=== PATIENT | female | born 1995 | race Caucasian/White ===

== ENCOUNTER 2018-10-16 18:58 | Emergency (ER) | payer OTHER, MEDICAID ==
[~2018-10-16] VITALS: Ht 165.1 cm; Wt 52.2 kg
[~2018-10-16 18:58] MED LIST: ACETAMINOPHEN-1 EAC1 PO; AMITRIPTYLINE H25 M2 PO; AZITHROMYCIN 2250 MG PO; BENADRYL25 MG PO; CIPRO500 MG PO; DOXYCYCLINE 10100 MG PO; FLAGYL500 MG PO; PEPCID20 MG PO; PHENERGAN 25 MG25 M1 PO; POTASSIUM20 PO; PRILOSEC 20 MG20 MG PO; PROMETHAZINE12.5 M4 RE; PROMS25 WY RECTAL; SUPRAX400 M1 PO; XANAX 0.25 MG0.25 MG PO; ZOFRAN ODT4 MG PO; ZPAK PO
[2018-10-16 19:57] LABS: ABSOLUTE EOSINOPHILS 0.2 thou/uL (0.0-0.7); ABSOLUTE LYMPHOCYTES 3.1 thou/uL (0.8-5.3); ABSOLUTE MONOCYTES 0.7 thou/uL (0.0-1.2); ABSOLUTE NEUTROPHILS 6.3 thou/uL (1.6-8.1); BASOPHILS 0.1 %; EOSINOPHILS 1.9 %; HEMATOCRIT 37.3 % (37.0-47.0); HEMOGLOBIN 12.3 gm/dL (12.0-15.0); LYMPHOCYTES 29.8 %; MCH 27.7 pg (26.0-34.0); MCHC 33.1 g/dL (28.0-37.0); MCV 83.8 fL (80.0-100.0); MONOCYTES 7.2 %; MPV 8.1 fl. (7.2-11.1); NUCLEATED RBCS 0 /100WBC; PLATELET COUNT* 263 thou/uL (150-400); RBC 4.45 mil/uL (4.20-5.00); WBC 10.4 thou/uL (4.0-11.0)
[2018-10-16 20:07] LABS: ANION GAP 13 mmol/L (7-16); BUN 6 mg/dL (7-18); CALCIUM 9.4 mg/dL (8.5-10.1); CHLORIDE 100 mmol/L (98-107); CO2 21 mmol/L (21-32); CREATININE 0.6 mg/dL (0.6-1.3); GLUCOSE 86 mg/dL (70-99); POTASSIUM 3.5 mmol/L (3.5-5.1); SODIUM 134 mmol/L (136-145)
[2018-10-16 20:12] LABS: APTT 30.6 Seconds (25.0-31.3); PROTIME 10.6 Seconds (9.20-11.50)
[2018-10-16 20:32] LABS: ALBUMIN 3.5 g/dL (3.4-5.0); ALKALINE PHOSPHATASE 62 U/L (46-116); CK-MB MASS 0.6 ng/mL (<0.5-3.6); LIPASE 117 U/L (73-393); MAGNESIUM 1.8 mg/dL (1.8-2.4); NT-PRO BRAIN NAT PEPTIDE 64 pg/mL (<300); SGOT 10 U/L (15-37); SGPT 12 U/L (30-65); TOTAL BILIRUBIN 0.3 mg/dL (<0.1-1.0); TOTAL PROTEIN 7.2 g/dL (6.4-8.2); TROPONIN-I LEVEL <0.06 ng/mL (<0.06)
[2018-10-16 20:40] VITALS: BP 106/56
--- NOTE | 2018-10-17 11:08 | EKG ---
[place] [address] ELECTROCARDIOGRAM REPORT Name: ELEN BUNCHBY Thomas Room: [facility]#: [id number] Admission: 10/16/18 Attend Phys: Discharge: 10/16/18 Date of : [birth year] Report #: [id number] THIS REPORT FOR: //name// [facility] ED Test Date: 2018-10-16 Test Time: 19:12:36 Pat Name: RUBY BUNCH Department: Room: Gender: F Test Examiner: : 1995 Requested By: Ovidio Lloyd Order Number: [id number] MD: Horacio Schmitz Measurements Intervals [place] Rate: 86 P: 16 CA: 183 QRS: 79 QRSD: 110 T: 48 QT: 373 QTc: 446 Interpretive Statements Sinus rhythm RSR' in V1 or V2, right VCD or RVH Compared to ECG 07/09/2014 13:59:45 no change Electronically Signed On 10-17-2018 11:07:53 LEHR LOADER by Horacio Schmitz [email or web address] <ELECTRONICALLY SIGNED> By: Horacio Schmitz MD, [facility] 10/17/18 110 11 11 Horacio Schmitz MD, FACC /EPI
== END 2018-10-16 20:40 | disposition home or self-care (01) ==
LOC: M.ERS 18:58
PROVIDERS: Family Medicine
DX: O26.892 Other specified pregnancy related conditions, second trimester (principal); R07.89 Other chest pain; F17.210 Nicotine dependence, cigarettes, uncomplicated; Z88.6 Allergy status to analgesic agent; Z87.442 Personal history of urinary calculi; Z3A.00 Weeks of gestation of pregnancy not specified

== ENCOUNTER 2019-09-30 00:51 | Emergency (ER) | payer OTHER, MEDICAID ==
[~2019-09-30] VITALS: Ht 165.1 cm; Wt 54.0 kg
[2019-09-30] MEDS ORDERED: TYLENOL WITH CO1 TA1 PO (01:59)
[2019-09-30 02:05] VITALS: BP 108/54
== END 2019-09-30 02:05 | disposition home or self-care (01) ==
LOC: M.ERS 00:51
DX: S80.01XA Contusion of right knee, initial encounter (principal); F17.210 Nicotine dependence, cigarettes, uncomplicated; Z87.442 Personal history of urinary calculi; W01.0XXA Fall on same level from slipping, tripping and stumbling without subsequent striking against object, initial encounter; Y93.89 Activity, other specified; Y92.89 Other specified places as the place of occurrence of the external cause; Y99.8 Other external cause status

== ENCOUNTER 2019-10-23 20:26 | Emergency (ER) | payer OTHER, MEDICAID ==
[~2019-10-23] VITALS: Ht 165.1 cm; Wt 54.0 kg
[~2019-10-23 20:26] MED LIST changes: +TYLENOL WITH CO1 TA1 PO
[2019-10-23 21:21] LABS: INFLUENZA A ANTIGEN Negative (Negative); INFLUENZA B ANTIGEN Negative (Negative)
[2019-10-23 21:29] LABS: URINE BILIRUBIN NEGATIVE (Negative); URINE BLOOD NEGATIVE (Negative); URINE CLARITY CLEAR; URINE COLOR YELLOW; URINE GLUCOSE-RANDOM NEGATIVE (Negative); URINE KETONES NEGATIVE (Negative); URINE LEUKOCYTES-REFLEX 1+ (Negative); URINE NITRITE-REFLEX NEGATIVE (Negative); URINE PROTEIN 2+ (Negative); URINE SPECIFIC GRAVITY 1.015 (1.005-1.030)
[2019-10-23 21:36] LABS: ABSOLUTE BASOPHILS 0.1 thou/uL (0.0-0.2); ABSOLUTE EOSINOPHILS 0.2 thou/uL (0.0-0.7); ABSOLUTE LYMPHOCYTES 2.4 thou/uL (0.8-5.3); ABSOLUTE MONOCYTES 0.4 thou/uL (0.0-1.2); ABSOLUTE NEUTROPHILS 8.6 thou/uL (1.6-8.1); BASOPHILS 0.9 %; EOSINOPHILS 1.4 %; HEMOGLOBIN 12.7 gm/dL (12.0-15.0); LYMPHOCYTES 20.8 %; MCH 24.5 pg (26.0-34.0); MCHC 32.6 g/dL (28.0-37.0); MONOCYTES 3.7 %; MPV 8.3 fl. (7.2-11.1); NUCLEATED RBCS 0 /100WBC; PLATELET COUNT* 251 thou/uL (150-400); POLYS 73.2 %; WBC 11.7 thou/uL (4.0-11.0)
[2019-10-23 21:36] LABS: MUCUS >6 Heavy strn/LPF (None Seen); SQUAMOUS >10 Many /LPF (0-3); URINE WBC-REFLEX 6-15 Few /HPF (0-5)
[2019-10-23 21:37] LABS: BACTERIA-REFLEX 1-9 Few /HPF (None Seen); CASTS None Seen /LPF (None Seen); CRYSTALS None Seen /LPF (None Seen); URINE RBC 0-2 Rare /HPF (0-2)
[2019-10-23 21:42] LABS: CALCIUM 8.5 mg/dL (8.5-10.1); CREATININE 0.7 mg/dL (0.6-1.3); POTASSIUM 3.9 mmol/L (3.5-5.1)
[2019-10-23 21:47] LABS: ALBUMIN 4.2 g/dL (3.4-5.0); TOTAL BILIRUBIN 0.7 mg/dL (<0.1-1.0); TOTAL PROTEIN 7.5 g/dL (6.4-8.2)
[2019-10-23 23:27] VITALS: BP 107/62
== END 2019-10-23 23:27 | disposition home or self-care (01) ==
LOC: M.ERS 20:26
PROVIDERS: Nurse Practitioner Family
DX: J06.9 Acute upper respiratory infection, unspecified (principal); R11.2 Nausea with vomiting, unspecified; R19.7 Diarrhea, unspecified; Z87.442 Personal history of urinary calculi; F17.210 Nicotine dependence, cigarettes, uncomplicated

== ENCOUNTER 2019-11-07 14:24 | Emergency (ER) | payer OTHER, MEDICAID ==
[~2019-11-07] VITALS: Ht 165.1 cm; Wt 54.4 kg
[2019-11-07 15:17] LABS: INFLUENZA A ANTIGEN Negative (Negative); INFLUENZA B ANTIGEN Negative (Negative)
[2019-11-07 15:35] LABS: URINE BLOOD 3+ (Negative); URINE CLARITY SL CLOUDY; URINE COLOR YELLOW; URINE GLUCOSE-RANDOM NEGATIVE (Negative); URINE KETONES 1+ (Negative); URINE LEUKOCYTES-REFLEX TRACE (Negative); URINE PROTEIN 1+ (Negative); URINE SPECIFIC GRAVITY >= 1.030 (1.005-1.030)
[2019-11-07 15:40] LABS: ICTOTEST (BILI CONFIRMATORY) Negative (Negative); URINE BILIRUBIN 2+ (Negative); URINE NITRITE-REFLEX POSITIVE (Negative)
[2019-11-07 15:43] LABS: ABSOLUTE BASOPHILS 0.1 thou/uL (0.0-0.2); ABSOLUTE EOSINOPHILS 0.1 thou/uL (0.0-0.7); ABSOLUTE LYMPHOCYTES 1.4 thou/uL (0.8-5.3); ABSOLUTE MONOCYTES 1.1 thou/uL (0.0-1.2); BASOPHILS 0.5 %; EOSINOPHILS 0.9 %; HEMATOCRIT 33.2 % (37.0-47.0); HEMOGLOBIN 10.9 gm/dL (12.0-15.0); LYMPHOCYTES 12.1 %; MCH 24.4 pg (26.0-34.0); MCHC 32.8 g/dL (28.0-37.0); MCV 74.2 fL (80.0-100.0); MONOCYTES 9.6 %; MPV 7.8 fl. (7.2-11.1); NUCLEATED RBCS 0 /100WBC; PLATELET COUNT* 328 thou/uL (150-400); POLYS 76.9 %; RBC 4.48 mil/uL (4.20-5.00); RDW-CV 16.8 % (10.5-14.5); WBC 11.7 thou/uL (4.0-11.0)
[2019-11-07 15:52] LABS: CASTS None Seen /LPF (None Seen); CRYSTALS None Seen /LPF (None Seen); SQUAMOUS >10 Many /LPF (0-3); URINE RBC >20 Many /HPF (0-2); URINE WBC-REFLEX 6-15 Few /HPF (0-5)
[2019-11-07 15:54] LABS: CALCIUM 8.5 mg/dL (8.5-10.1); CREATININE 0.6 mg/dL (0.6-1.3); POTASSIUM 3.5 mmol/L (3.5-5.1)
[2019-11-07] MEDS ORDERED: KEFLEX500 M1 PO (15:56)
[2019-11-07] MEDS ORDERED: PROMETHAZI6.25 MG/5 PO (15:56)
[2019-11-07] MEDS ORDERED: TESSALON PERLE100 MG PO (15:56)
[2019-11-07 15:59] LABS: ALBUMIN 3.1 g/dL (3.4-5.0); TOTAL BILIRUBIN 0.7 mg/dL (<0.1-1.0); TOTAL PROTEIN 7.7 g/dL (6.4-8.2)
[2019-11-07 16:25] VITALS: BP 135/75
== END 2019-11-07 16:26 | disposition home or self-care (01) ==
LOC: M.ERS 14:24
PROVIDERS: Physician Assistant
DX: N39.0 Urinary tract infection, site not specified (principal); J06.9 Acute upper respiratory infection, unspecified; F17.210 Nicotine dependence, cigarettes, uncomplicated; Z87.442 Personal history of urinary calculi

== ENCOUNTER 2019-11-29 12:55 | Emergency (ER) | payer OTHER, MEDICAID ==
[~2019-11-29] VITALS: Ht 165.1 cm; Wt 56.7 kg
[~2019-11-29 12:55] MED LIST changes: +KEFLEX500 M1 PO; +PROMETHAZI6.25 MG/5 PO; +TESSALON PERLE100 MG PO
[2019-11-29 13:21] LABS: URINE BILIRUBIN NEGATIVE (Negative); URINE BLOOD NEGATIVE (Negative); URINE CLARITY CLEAR; URINE COLOR YELLOW; URINE GLUCOSE-RANDOM NEGATIVE (Negative); URINE KETONES NEGATIVE (Negative); URINE LEUKOCYTES-REFLEX NEGATIVE (Negative); URINE NITRITE-REFLEX NEGATIVE (Negative); URINE PROTEIN NEGATIVE (Negative); URINE SPECIFIC GRAVITY 1.025 (1.005-1.030); URINE UROBILINOGEN 0.2 E.U./dl (0.2-1.0)
[2019-11-29 14:54] LABS: ABSOLUTE BASOPHILS 0.1 thou/uL (0.0-0.2); ABSOLUTE EOSINOPHILS 0.3 thou/uL (0.0-0.7); ABSOLUTE LYMPHOCYTES 2.7 thou/uL (0.8-5.3); ABSOLUTE MONOCYTES 0.6 thou/uL (0.0-1.2); HEMOGLOBIN 11.9 gm/dL (12.0-15.0); LYMPHOCYTES 27.9 %; MCH 23.5 pg (26.0-34.0); MCHC 32.1 g/dL (28.0-37.0); MCV 73.3 fL (80.0-100.0); MONOCYTES 5.9 %; MPV 7.6 fl. (7.2-11.1); NUCLEATED RBCS 0 /100WBC; PLATELET COUNT* 255 thou/uL (150-400); POLYS 62.2 %; RBC 5.04 mil/uL (4.20-5.00); RDW-CV 17.5 % (10.5-14.5); WBC 9.7 thou/uL (4.0-11.0)
[2019-11-29 15:07] LABS: CALCIUM 8.5 mg/dL (8.5-10.1); CREATININE 0.6 mg/dL (0.6-1.3)
[2019-11-29 15:12] LABS: ALBUMIN 3.6 g/dL (3.4-5.0); TOTAL BILIRUBIN 0.3 mg/dL (<0.1-1.0); TOTAL PROTEIN 7.7 g/dL (6.4-8.2)
[2019-11-29] MEDS ORDERED: ZOFRAN ODT4 MG PO (15:32)
[2019-11-29 15:38] VITALS: BP 107/64
== END 2019-11-29 15:40 | disposition left against medical advice (07) ==
LOC: M.ERS 12:55
PROVIDERS: Physician Assistant
DX: R11.2 Nausea with vomiting, unspecified (principal); R10.84 Generalized abdominal pain; F17.210 Nicotine dependence, cigarettes, uncomplicated; Z87.442 Personal history of urinary calculi

== ENCOUNTER 2021-02-27 19:32 | Emergency (ER) | payer OTHER, MEDICAID ==
[~2021-02-27] VITALS: Ht 152.4 cm; Wt 56.7 kg
[~2021-02-27 19:32] MED LIST changes: +CEPHALEXIN500 MG PO; +IBUPROFEN 800800 MG PO; +MACROBID 100 M100 M1 PO; +PYRIDIUM200 MG PO
[2021-02-27 20:16] LABS: URINE BILIRUBIN NEGATIVE (Negative); URINE BLOOD NEGATIVE (Negative); URINE CLARITY CLEAR; URINE COLOR YELLOW; URINE GLUCOSE-RANDOM NEGATIVE (Negative); URINE KETONES NEGATIVE (Negative); URINE LEUKOCYTES-REFLEX 1+ (Negative); URINE NITRITE-REFLEX NEGATIVE (Negative); URINE PROTEIN NEGATIVE (Negative); URINE UROBILINOGEN 0.2 E.U./dl (0.2-1.0)
[2021-02-27 20:27] LABS: CASTS None Seen /LPF (None Seen); CRYSTALS None Seen /LPF (None Seen); MUCUS None Seen strn/LPF (None Seen); SQUAMOUS >10 Many /LPF (0-3); URINE WBC-REFLEX 0-5 Rare /HPF (0-5)
[2021-02-27 20:28] LABS: BACTERIA-REFLEX None Seen /HPF (None Seen); URINE RBC None Seen /HPF (0-2)
[2021-02-27 20:35] LABS: AMP/METHAMP Negative (Negative); BARBITURATES Negative (Negative); BENZODIAZEPINES Negative (Negative); COCAINE Negative (Negative); METHADONE Negative (Negative); OPIATES Negative (Negative); PCP Negative (Negative); THC POSITIVE (Negative)
[2021-02-27 21:09] LABS: ABSOLUTE EOSINOPHILS 0.1 thou/uL (0.0-0.7); ABSOLUTE LYMPHOCYTES 2.4 thou/uL (0.8-5.3); ABSOLUTE MONOCYTES 0.3 thou/uL (0.0-1.2); ABSOLUTE NEUTROPHILS 6.4 thou/uL (1.6-8.1); BASOPHILS 0.4 %; EOSINOPHILS 1.4 %; HEMATOCRIT 41.5 % (37.0-47.0); HEMOGLOBIN 13.9 gm/dL (12.0-15.0); LYMPHOCYTES 26.1 %; MCH 27.9 pg (26.0-34.0); MCHC 33.5 g/dL (28.0-37.0); MCV 83.3 fL (80.0-100.0); MONOCYTES 3.4 %; MPV 7.2 fl. (7.2-11.1); NUCLEATED RBCS 0 /100WBC; PLATELET COUNT* 223 thou/uL (150-400); POLYS 68.7 %; RBC 4.98 mil/uL (4.20-5.00); RDW-CV 15.8 % (10.5-14.5); WBC 9.3 thou/uL (4.0-11.0)
[2021-02-27 21:20] LABS: ANION GAP 10 mmol/L (7-16); BUN 5 mg/dL (7-18); CALCIUM 8.7 mg/dL (8.5-10.1); CHLORIDE 109 mmol/L (98-107); CO2 25 mmol/L (21-32); CREATININE 0.7 mg/dL (0.6-1.3); GLUCOSE 106 mg/dL (70-99); POTASSIUM 3.4 mmol/L (3.5-5.1); SODIUM 144 mmol/L (136-145)
[2021-02-27 21:24] LABS: ALBUMIN 4.2 g/dL (3.4-5.0); ALKALINE PHOSPHATASE 68 U/L (46-116); MAGNESIUM 2.2 mg/dL (1.8-2.4); SGOT 15 U/L (15-37); SGPT < 6 U/L (30-65); TOTAL BILIRUBIN < 0.1 mg/dL (<0.1-1.0)
[2021-03-01 11:10] VITALS: BP 104/55
== END 2021-03-01 11:11 | disposition home or self-care (01) ==
LOC: M.ERS 19:32
PROVIDERS: Emergency Medicine
DX: F23 Brief psychotic disorder (principal); Z20.822 Contact with and (suspected) exposure to COVID-19; F10.129 Alcohol abuse with intoxication, unspecified; R41.82 Altered mental status, unspecified; F32.9 Major depressive disorder, single episode, unspecified; F17.210 Nicotine dependence, cigarettes, uncomplicated; Z87.442 Personal history of urinary calculi; Y90.9 Presence of alcohol in blood, level not specified

== ENCOUNTER 2021-08-18 06:48 | Emergency (ER) | payer OTHER, MEDICAID ==
[~2021-08-18] VITALS: Ht 165.1 cm; Wt 56.7 kg
[2021-08-18 06:50] VITALS: BP 132/76
[2021-08-18] MEDS ORDERED: SUBOXONE 8 MG-1 EAC3 SUBLING (06:56)
[2021-08-18] MEDS ORDERED: KEPPRA XR500 MG PO (06:56)
[2021-08-18] MEDS ORDERED: DESYREL150 MG PO (06:57)
--- NOTE | 2021-08-18 11:13 | EKG ---
[place] [address] ELECTROCARDIOGRAM REPORT Name: RUBY BUNCH Room: [facility]#: [id number] Admission: 08/18/21 Attend Phys: Discharge: Date of : [birth year] Date of Service: 08/18/21 0648 Report #: [id number] THIS REPORT FOR: //name// [facility] ED Test Date: 2021-08-18 Test Time: 06:48:17 Pat Name: RUBY BUNCH Department: Room: Gender: F Water Superintendent: [place] : 1995 Requested By: Johnna Brown Order Number: [id number] MD: Gabino Gutierrez Measurements Intervals [place] Rate: 87 P: 64 NE: 180 QRS: 94 QRSD: 106 T: 32 QT: 412 QTc: 496 Interpretive Statements Sinus rhythm LAE, consider biatrial enlargement IVCD of the right type; RVH must be considered Prolonged QT interval Compared to ECG 10/16/2018 19:12:36 Prolonged QT interval now present Electronically Signed On 08-18-2021 11:13:24 [employer] MACHINE HELPER by Gabino Gutierrez [email or web address] <ELECTRONICALLY SIGNED> By: Gabino Gutierrez MD, [facility] 08/18/21 1113 0648 0648 Gabino Gutierrez MD, [facility] /EPI
== END 2021-08-18 07:37 | disposition home or self-care (01) ==
LOC: M.ERS 06:48
DX: R07.89 Other chest pain (principal); F41.9 Anxiety disorder, unspecified; Z53.21 Procedure and treatment not carried out due to patient leaving prior to being seen by health care provider